=== PATIENT | female | born 1955 | race Caucasian/White ===

== ENCOUNTER 2017-02-03 06:28 | Emergency (ER) | payer MEDICAID, OTHER ==
[2017-02-03 06:44] VITALS: RESP 16
[2017-02-03] MEDS ORDERED: Sodium Chloride 0.9% 1,000 ML IV ONE (07:33)
[2017-02-03] MEDS ORDERED: Albuterol 0.083% Inhal Sol (2.5 mg/3 mL) UD IH STA (07:33)
[2017-02-03] MEDS ORDERED: Albuterol 0.083% Inhal Sol (2.5 mg/3 mL) UD ONE (07:38)
[2017-02-03] MEDS ORDERED: Sodium Chloride 0.9% 1,000 ML ONE (07:38)
[2017-02-03 07:56] LABS: BASO # 0.1 K/uL (0.0-0.2); BASO % 0.9 % (0.0-2.0); EOS # 0.1 K/uL (0.0-0.7); EOS % 0.7 % (0.0-4.0); HEMATOCRIT 37.7 % (34.0-47.0); LYMPH # 7.8 K/uL (1.0-4.3); MEAN CELL VOLUME 76.6 fL (81.0-99.0); MEAN CORPUSCULAR HEMOGLOBIN 24.9 pg (27.0-31.0); MEAN CORPUSCULAR HGB CONC 32.5 g/dL (33.0-37.0); MEAN PLATELET VOLUME 15.1 fL (7.2-11.7); MONO # 1.7 K/uL (0.0-0.8); MONO % 16.9 % (0.0-10.0); NRBC % 0.2 % (0.0-2.0); PLATELET COUNT 92 K/uL (130-400); RED CELL DISTRIBUTION WIDTH 16.8 % (11.5-14.5); WHITE BLOOD COUNT 10.3 K/uL (4.8-10.8)
[2017-02-03 08:05] LABS: CHLORIDE 100 mmol/L (98-107)
[2017-02-03 08:06] LABS: POTASSIUM 4.8 mmol/L (3.6-5.2); SODIUM 131 mmol/L (132-148)
[2017-02-03 08:08] LABS: GFR AFRICAN-AMERICAN > 60
[2017-02-03 08:09] LABS: ALB/GLOB RATIO 0.7 (1.0-2.1); ALKALINE PHOSPHATASE 148 U/L (38-126); ALT/SGPT 15 U/L (9-52); AST/SGOT 28 U/L (14-36); BILIRUBIN,TOTAL 0.8 mg/dL (0.2-1.3); BLOOD UREA NITROGEN 12 mg/dL (7-17); CALCIUM 7.9 mg/dl (8.6-10.4); CARBON DIOXIDE 24 mmol/L (22-30); GLUCOSE,RANDOM 96 mg/dL (65-105); TOTAL PROTEIN 7.1 g/dL (6.3-8.3)
--- NOTE | 2017-02-03 08:24 | C.PDOC ---
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 Patient is drinking a cough syrup with no relief. (-) shortness of breath (-)chest pain (-)fevers (-) diarrhea, or any other associated symptoms. No other complaints at this time. Time Seen by Provider: 02/03/17 07:28 Chief Complaint (Nursing): Cough, Cold, Congestion History Per: Patient History/Exam Limitations: no limitations Onset/Duration Of Symptoms: Days Current Symptoms Are (Timing): Still Present Past Medical History Reviewed: Historical Data, Nursing Documentation, Vital Signs Vital Signs: Last Vital Signs Temp 98.5 F 02/03/17 09:15 Pulse 81 02/03/17 09:15 Resp 16 02/03/17 09:15 BP 129/88 02/03/17 09:15 Pulse Ox 97 02/03/17 12:25 - Medical History PMH: Hypothyroidism Denies: Chronic Kidney Disease - [facility] Procedures EXTRACTION OF ILIAC BONE MARROW, PERC APPROACH, DIAGN (04/07/16) TRANSFUSE NONAUT PLATELETS IN PERIPH VEIN, PERC (04/07/16) Family History: States: No Known Family Hx - Social History Hx Tobacco Use: No Hx Alcohol Use: No Hx Substance Use: No - Immunization History Hx Tetanus Toxoid Vaccination: No Hx Influenza Vaccination: No Hx Pneumococcal Vaccination: No Review Of Systems Except As Marked, All Systems Reviewed And Found Negative. Constitutional: Negative for: Fever, Chills Cardiovascular: Negative for: Chest Pain, Palpitations Respiratory: Positive for: Cough. Negative for: Sputum Gastrointestinal: Negative for: Nausea, Vomiting, Abdominal Pain Musculoskeletal: Negative for: Back Pain Physical Exam - Physical Exam Appears: Non-toxic, No Acute Distress Skin: Warm, Dry, No Rash Head: Atraumatic, Normacephalic Eye(s): bilateral: Normal Inspection, EOMI Nose: Normal Oral Mucosa: Moist Lips: Normal Appearing Throat: Normal, No Erythema, No Exudate Neck: Normal ROM, No Midline Cervical Tenderness, Supple Lymphatic: Normal Exam Chest: Symmetrical Cardiovascular: Rhythm Regular, No Murmur Respiratory: Normal Breath Sounds, No Accessory Muscle Use, Other (occassional cough noted) Gastrointestinal/Abdominal: Soft, No Tenderness Extremity: Normal ROM Neurological/Psych: Oriented x3, Normal Speech (speaking in full sentences) ED Course And Treatment - Laboratory Results Result Diagrams: 02/03/17 07:52 02/03/17 07:52 ECG: Interpreted By Me, Viewed By Me ECG Rhythm: Sinus Rhythm ECG Interpretation: No Acute Changes Rate From EC O2 Sat by Pulse Oximetry: 97 - Radiology CXR: Interpreted by Me, Viewed By Me CXR Interpretation: Yes: No Acute Disease Progress Note: EKG, Bloodwork, CXR, IVFs and Duoneb ordered and reviewed. On re -evaluation, pt notes much improvement. No cough. No sob. No chest pain. Pulse ox 98%. Labs reviewed in comparison to previous labs. Baseline, no signficant changes. No c/o bleeding. Copies given to follow up outpatient w/ PMD in 2 days. Case discsused with Dr Main, agreed upon plan and discharge. Disposition - Disposition Referrals: Loli Brewer MD [Staff Provider] - Disposition: HOME/ ROUTINE Disposition Time: 08:43 Condition: STABLE Additional Instructions: Follow up with your primary medical doctor or clinic in 2-5 days for further evaluation. Take medications as prescribed. Return to the emergency department at any time if symptoms persist or worsen. Prescriptions: Albuterol HFA [Ventolin HFA 90 mcg/actuation (8 g)] 2 puff IH [id number] #1 puff Azithromycin [Zithromax] 250 mg PO DAILY #6 tab Benzonatate [Tessalon Perle] 100 mg PO TID PRN #15 capsule PRN Reason: Cough Instructions: Upper Respiratory Infection (ED) - Clinical Impression Clinical Impression: Bronchitis - Scribe Statement The provider has reviewed the documentation as recorded by the Jos Vargas All medical record entries made by the Scribe were at my direction and personally dictated by me. I have reviewed the chart and agree that the record accurately reflects my personal performance of the history, physical exam, medical decision making, and the department course for this patient. I have also personally directed, reviewed, and agree with the discharge instructions and disposition.
--- NOTE | 2017-02-03 08:39 | RAD ---
HISTORY: Shortness of breath. COMPARISON: No prior. TECHNIQUE: Chest PA and lateral FINDINGS: LUNGS: No active pulmonary disease. PLEURA: No evidence of pneumothorax, pleural effusion or other pathologic process. CARDIOVASCULAR: No radiographic findings to suggest acute or significant cardiovascular disease. OSSEOUS STRUCTURES: No significant abnormalities. VISUALIZED UPPER ABDOMEN: Normal. OTHER FINDINGS: None. IMPRESSION: No active disease.
[2017-02-03 09:16] VITALS: BP 129/88; PULSE 81; TEMP 98.5
[2017-02-03 09:31] LABS: BASOPHIL 1 % (0-2); EOSINOPHIL 1 % (0-4); NEUTROPHIL 6 % (50-75); NUCLEATED RED BLOOD CELL 1 % (0-0); REACTIVE LYMPHOCYTES 6 % (0-0); TOTAL CELLS COUNTED 100
[2017-02-03 09:32] LABS: LARGE PLATELETS PRESENT
[2017-02-03 09:33] LABS: GIANT PLATELETS PRESENT
[2017-02-03 09:43] VITALS: O2SAT 97
--- NOTE | 2017-02-06 17:24 | CARD ---
APPROVED REPORT EKG Measurement Heart [id number] <Conclusion> Normal sinus rhythm Low voltage QRS Borderline ECG
== END 2017-02-03 09:15 | disposition home or self-care (01) ==
LOC: C.ER 06:28
DX: J40 Bronchitis, not specified as acute or chronic (principal)
CPT/HCPCS: 71020; 80053; 82550; 82553; 84484; 85025; 96360; 99284; J7040

== ENCOUNTER 2017-03-21 07:27 | Day surgery (SDC) | payer OTHER ==
[2017-03-21 08:03] VITALS: BMI 28.6
--- NOTE | 2017-03-21 08:49 | CP.SDSHP ---
Same Day Surgery H & P - History Proposed Procedure: COLONSCOPY Pre-Op Diagnosis: SEE NOTES - Previous Medical/Surgical History Endocrine/Metabolic: Thyroid Disease Misc: Other Pain: 2.Mild Pain - Allergies Allergies: Allergies No Known Allergies Allergy (Verified 02/03/17 06:42) - Physical Exam General Appearance: N Vital Signs: Vital Signs 03/21/17 08:16 Temperature 98.1 F Pulse Rate 88 Respiratory 20 Rate Blood Pressure 114/77 O2 Sat by Pulse 98 Oximetry Mental Status: Alert & Oriented x3 Neuro: WNL Heart: WNL Lungs: WNL GI: Other - {Optional Preform as Required} Breast: WNL Abdomen: Other Rectal: Other Integument: WNL : WNL Ortho: WNL ENT: WNL - Impression Pt. Evaluated Today:Candidate for Anesthesia & Procedure: Yes - Date & Time Time: 08:49 Short Stay Discharge - Short Stay Discharge Admitting Diagnosis/Reason for Visit: ENCOUNTER FOR SCREENING FOR MALIGNANT NEOPLASM OF Disposition: HOME/ ROUTINE
[2017-03-21] MEDS ORDERED: Lidocaine Hydrochloride 5 ML INJ ONE (08:51)
[2017-03-21] MEDS ORDERED: Propofol 10 mg/ml Inj (20 ML) ONE (08:51)
[2017-03-21] MEDS ORDERED: Belladonna-Phenobarbital PO ONE (09:45)
[2017-03-21 10:02] VITALS: TEMP 96.9
[2017-03-21 10:04] VITALS: O2SAT 98
[2017-03-21 10:06] VITALS: BP 90/58; PULSE 73; RESP 20
== END 2017-03-21 10:17 | disposition home or self-care (01) ==
LOC: C.ENDO 07:27
PROVIDERS: ATTEND Specialist
DX: Z12.11 Encounter for screening for malignant neoplasm of colon (principal); D12.4 Benign neoplasm of descending colon; K64.4 Residual hemorrhoidal skin tags; K64.8 Other hemorrhoids; K58.9 Irritable bowel syndrome, unspecified; D69.6 Thrombocytopenia, unspecified; E07.9 Disorder of thyroid, unspecified; Z98.890 Other specified postprocedural states; Z79.899 Other long term (current) drug therapy

== ENCOUNTER 2017-03-26 06:53 | Day surgery (SDC) | payer OTHER ==
[2017-03-26 07:14] VITALS: BMI 25.7
[2017-03-26] MEDS ORDERED: Propofol 10 mg/ml Inj (20 ML) ONE (08:35)
--- NOTE | 2017-03-26 08:37 | CP.SDSHP ---
Same Day Surgery H & P - History Proposed Procedure: EGD Pre-Op Diagnosis: SEE NOTES - Previous Medical/Surgical History Endocrine/Metabolic: Thyroid Disease Neuro: Backaches Misc: Other Pain: 4.Moderate Pain - Allergies Allergies: Allergies No Known Allergies Allergy (Verified 02/03/17 06:42) - Physical Exam General Appearance: N Vital Signs: Vital Signs 03/26/17 07:14 Temperature 97.8 F Pulse Rate 66 Respiratory 19 Rate Blood Pressure 127/73 O2 Sat by Pulse 98 Oximetry Mental Status: Alert & Oriented x3 Neuro: WNL Heart: WNL Lungs: WNL GI: Other - {Optional Preform as Required} Breast: WNL Abdomen: Other Rectal: Other Integument: WNL : WNL Ortho: Other ENT: WNL - Impression Pt. Evaluated Today:Candidate for Anesthesia & Procedure: Yes - Date & Time Time: 08:37 Short Stay Discharge - Short Stay Discharge Admitting Diagnosis/Reason for Visit: DYSPEPSIA Disposition: HOME/ ROUTINE
[2017-03-26] MEDS ORDERED: Pantoprazole 40 mg EC Tab PO STA (08:38)
[2017-03-26] MEDS ORDERED: Belladonna-Phenobarbital PO STA (08:38)
[2017-03-26 09:10] VITALS: TEMP 97.2
[2017-03-26 09:17] VITALS: O2SAT 100
[2017-03-26 10:11] VITALS: BP 133/76; PULSE 54; RESP 14
== END 2017-03-26 09:55 | disposition home or self-care (01) ==
LOC: C.ENDO 06:53
PROVIDERS: ATTEND Specialist
DX: K29.00 Acute gastritis without bleeding (principal); K21.0 Gastro-esophageal reflux disease with esophagitis; K44.9 Diaphragmatic hernia without obstruction or gangrene
CPT/HCPCS: 43239; 88305; 88342; J2001; J2704; J3010